=== PATIENT | female | born 1975 | race Hispanic/Latino ===

== ENCOUNTER 2020-11-30 15:52 | Emergency (ER) | payer OTHER ==
[~2020-11-30] VITALS: Ht 165.1 cm; Wt 149.7 kg
[2020-11-30] MEDS ORDERED: ANALPRAM HC 2.530 GM PR (16:48)
[2020-11-30 17:04] VITALS: BP 136/73
== END 2020-11-30 17:03 | disposition home or self-care (01) ==
LOC: FSED 16:10
DX: K62.5 Hemorrhage of anus and rectum (principal); K60.2 Anal fissure, unspecified; I10 Essential (primary) hypertension
CPT/HCPCS: 99283